=== PATIENT | male | born 1960 | race Caucasian/White ===

== ENCOUNTER 2017-09-07 23:18 | Emergency (ER) | payer OTHER | END 2017-09-08 00:29 | disposition home or self-care (01) | LOC: ER 09-08 00:29 | DX: L08.9 Local infection of the skin and subcutaneous tissue, unspecified (principal); A41.9 Sepsis, unspecified organism; E78.00 Pure hypercholesterolemia, unspecified; I10 Essential (primary) hypertension | CPT/HCPCS: 99283 ==